=== PATIENT | male | born 1990 | race Caucasian/White ===

== ENCOUNTER 2018-09-10 12:37 | Emergency (ER) | payer OTHER ==
[~2018-09-10] VITALS: Ht 170.2 cm; Wt 58.5 kg
[~2018-09-10 12:37] MED LIST: DILT360C12 PO
[2018-09-10 12:50] VITALS: BP 149/90; PULSE 115; RESP 18; Ht 170.2 cm; Wt 58.5 kg
[2018-09-10] MEDS ORDERED: LORAZEPAM 1 MG TAB PO ONE (14:30)
[2018-09-10] MEDS ORDERED: DILT180C94 PO (15:11)
[2018-09-10] MEDS ORDERED: LORA1TAB PO (15:11)
--- NOTE | 2018-09-10 15:27 | ERD ---
ER Documentation Chief Complaint Chief Complaint epigastric pain x 1 wk, cough/congestion, sob x 3 days, anxiety HPI Is a 27-year-old male with a history of SVT, anxiety who presents to the emergency room complaining of palpitations. At triage she noted epigastric pain but he denies this. Patient states that he is feeling very anxious. He is having episodes of palpitations that is consistent with his SVT. The patient does describe anxiety, hyperventilation, perioral paresthesia and carpal pedal spasms. This is his main concern today. He recently followed up with Dr. Monae as he has not been taking his diltiazem. He is here because he is having persistent symptoms and based on their conversation he would like to initiate his diltiazem. Patient denies any fevers or chills, no pressure in the chest no exertional symptoms no pleuritic pain. No nausea vomiting or diarrhea. ROS All systems reviewed and are negative except as per history of present illness. Medications Home Meds Active Scripts Lorazepam* (Lorazepam*) 1 Mg Tablet, 1 MG PO Q8H PRN for ANXIETY, #10 TAB Prov:PANKAJ LYONS MD 09/10/18 Diltiazem Hcl* (Diltiazem XT) 180 Mg Capsule.er, 180 MG PO DAILY, #30 CAP Prov:PANKAJ LYONS MD 09/10/18 Reported Medications Diltiazem Hcl (DILTIAZEM 24HR ER) 360 Mg Cap.er.24h, 360 MG PO DAILY 05/26/13 Allergies Allergies: Coded Allergies: No Known Allergy (Unverified , 09/08/12) PMhx/Soc Medical and Surgical Hx: pt denies Surgical Hx History of Surgery: No Anesthesia Reaction: No Hx Neurological Disorder: No Hx Respiratory Disorders: No Hx Cardiac Disorders: Yes (SVT) Hx Psychiatric Problems: No Hx Miscellaneous Medical Probl: No Hx Alcohol Use: No Hx Substance Use: No Hx Tobacco Use: No Smoking Status: Never smoker FmHx Family History: No diabetes Physical Exam Vitals Vital Signs Date Temp Pulse Resp B/P (MAP) Pulse Ox O2 O2 Flow FiO2 Time Delivery Rate 09/10/18 98.6 115 18 149/90 98 12:50 (109) Physical Exam General: Anxious male, well developed, well nourished, no acute distress Head: Normocephalic, atraumatic. Eyes: Pupils equally reactive, EOM intact ENT: Moist mucous membranes Neck: Supple, no lymphadenopathy Respiratory: Lungs clear bilaterally, no distress Cardiovascular: RRR, no murmurs, rubs, or gallops Abdominal: Soft, non-tender, non-distended, no peritoneal signs : Deferred MSK: No edema, no unilateral swelling, 5/5 strength Neurologic: Alert and oriented, moving all extremities, normal speech, no focal weakness, no cerebellar signs Skin: No rash Psych: Normal mood, anxious Results 24 hrs Current Medications Medications Dose Sig/Tawanda Start Time Status Last (Trade) Ordered Route PRN Stop Time Admin Dose Reason Admin Lorazepam 1 mg ONCE ONCE 09/10/18 DC 09/10/18 (Ativan) PO 14:30 14:24 09/10/18 14:31 Procedures/MDM EKG, MONITORS, & DIAGNOSTIC IMAGING: EKG: I reviewed and interpreted a 12-lead EKG. Rhythm: Sinus tachycardia ST Changes: No contiguous ST segment elevations T waves: No contiguous T wave inversions Impression: Sinus tachycardia, normal QRS and QTc, no Brugada MEDICAL DECISION MAKING: The patient is here because of persistent symptoms of tachycardia with a history of SVT. 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 Monae this week. They talked about reinitiating the patient's diltiazem. Patient is also having signs and symptoms consistent with anxiety and hyperventilation syndrome which is his main complaint today. He has a benign exam otherwise. He was tachycardic and hypertensive in triage but this is likely secondary to an xiety. On my evaluation the patient has a normal sinus rhythm. The patient has had thorough outpatient workup and I do not believe that further laboratory testing or diagnostic imaging is necessary in the emergency room setting. He has a normal sinus rhythm currently and is not currently in SVT. ER COURSE: * Patient was provided with Ativan for anxiolysis * I spoke to Dr. Patiño, on-call for Dr. Monae. We discussed the case and he agrees that reinitiating diltiazem would be reasonable but he would like to started 180 mg. * A prescription for diltiazem as noted above as well as Ativan was provided to the patient. Return precautions were discussed and understood. CONSULTATION: Cardiology as above DISPOSITION PLAN: The patient does not have an identifiable emergent medical condition that warrants inpatient hospitalization at this time. The patient is deemed safe for discharge with outpatient follow-up. We discussed follow up with the patient's primary care doctor within 24 to 48 hours as needed. We also discussed return to the emergency room for worsening symptoms or worsening condition. Outpatient referral: Dr. Monae Discharge Medications: Diltiazem extended release 180 mg once daily Ativan 1 mg a total of 10 tablets Departure Diagnosis: Primary Impression: History of paroxysmal supraventricular tachycardia Additional Impression: Hyperventilation syndrome Condition: Stable Patient Instructions: SVT, Hyperventilation Syndrome Referrals: JODI MONTENEGRO [facility] YOU HAVE RECEIVED A MEDICAL SCREENING EXAM AND THE RESULTS INDICATE THAT YOU DO NOT HAVE A CONDITION THAT REQUIRES URGENT TREATMENT IN THE EMERGENCY DEPARTMENT. FURTHER EVALUATION AND TREATMENT OF YOUR CONDITION CAN WAIT UNTIL YOU ARE SEEN IN YOUR DOCTORS OFFICE WITHIN THE NEXT 1-2 DAYS. IT IS YOUR RESPONSIBILITY TO MAKE AN APPOINTMENT FOR FOLOW-UP CARE. IF YOU HAVE A PRIMARY DOCTOR --you should call your primary doctor and schedule an appointment IF YOU DO NOT HAVE A PRIMARY DOCTOR YOU CAN CALL OUR PHYSICIAN REFERRAL HOTLINE AT IF YOU CAN NOT AFFORD TO SEE A PHYSICIAN YOU CAN CHOSE FROM THE FOLLOWING [facility] [address] [facility] [address] [facility] [facility] [address] [facility] [facility] [address] [facility] [address] [facility]. [facility]. [address] [facility]. [facility] YOU HAVE RECEIVED A MEDICAL SCREENING EXAM AND THE RESULTS INDICATE THAT YOU DO NOT HAVE A CONDITION THAT REQUIRES URGENT TREATMENT IN THE EMERGENCY DEPARTMENT. FURTHER EVALUATION AND TREATMENT OF YOUR CONDITION CAN WAIT UNTIL YOU ARE SEEN IN YOUR DOCTORS OFFICE WITHIN THE NEXT 1-2 DAYS. IT IS YOUR RESPONSIBILITY TO MAKE AN APPOINTMENT FOR FOLOW-UP CARE. IF YOU HAVE A PRIMARY DOCTOR --you should call your primary doctor and schedule and appointment IF YOU DO NOT HAVE A PRIMARY DOCTOR YOU CAN CALL OUR PHYSICIAN REFERRAL HOTLINE AT . IF YOU CAN NOT AFFORD TO SEE A PHYSICIAN YOU CAN CHOSE FROM THE FOLLOWING [facility] INSTITUTIONS: [facility] [address] [place] [address] [facility] [address] [place] [address] [facility] [address] [place] [address] Additional Instructions: Call your primary care doctor TOMORROW for an appointment during the next 1 WEEK.Tell the construction secretary that you were referred from this facility.See the doctor sooner or return here if your condition worsens before your appointment time. PANKAJ LYONS MD Sep 10, 2018 15:27
== END 2018-09-10 15:22 | disposition home or self-care (01) ==
LOC: FTE 12:37
DX: F45.8 Other somatoform disorders (principal); Z86.79 Personal history of other diseases of the circulatory system
CPT/HCPCS: 93005; 99283